=== PATIENT | female | born 2000 | race Caucasian/White ===

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

== ENCOUNTER 2020-01-06 15:06 | Emergency (ER) | payer BC ==
[~2020-01-06] VITALS: Ht 157.5 cm; Wt 62.9 kg
[~2020-01-06 15:06] MED LIST: LEVO50TA5 PO; PROP20TA72 PO; SYNT50TA PO; TRAZ-252 PO
[2020-01-06] MEDS ORDERED: PROPANOLOL 60 MG (15:13)
[2020-01-06] MEDS ORDERED: METH10TA PO (15:13)
[2020-01-06 15:47] LABS: BASO % 0.2 % (0.0-1.0); EOS # 0.1 10^3/uL (0.0-0.5); EOS % 2.7 % (0.0-3.0); HEMATOCRIT 37.9 % (36.0-47.0); HEMOGLOBIN 12.5 g/dl (12.0-15.5); LYMPH # 1.8 10^3/uL (1.5-5.0); LYMPH % 34.2 % (24.0-44.0); MEAN CORPUSCULAR HEMOGLOBIN 26.8 pg (27.0-33.0); MEAN CORPUSCULAR VOLUME 81.3 fl (80.0-96.0); MONO # 0.6 10^3/uL (0.0-0.8); MONO % 11.4 % (0.0-5.0); NEUTROPHILS # 2.7 10^3/uL (1.5-8.5); NEUTROPHILS % 51.3 % (36.0-66.0); PLATELET COUNT, AUTOMATED 354 10^3/uL (150-450); RED BLOOD COUNT 4.66 10^6/uL (4.00-5.40); WHITE BLOOD COUNT 5.2 10^3/uL (4.0-10.0)
[2020-01-06 15:53] LABS: APPEARANCE, URINE CLOUDY (CLEAR); BACTERIA, URINE AUTO 3+ (NEGATIVE); BILIRUBIN, URINE AUTO NEGATIVE (NEGATIVE); BLOOD, URINE BLOOD NEGATIVE (NEGATIVE); COLOR, URINE AMBER (YELLOW); GLUCOSE, URINE (UA) AUTO NEGATIVE (NEGATIVE); KETONE, URINE AUTO NEGATIVE (NEGATIVE); LEUKOCYTE ESTERASE, URINE AUTO TRACE (NEGATIVE); MUCUS, URINE LARGE (NEGATIVE); NITRITE, URINE AUTO NEGATIVE (NEGATIVE); PROTEIN, URINE AUTO 1+ mg/dL (NEGATIVE); RBC, URINE AUTO 7 /HPF (0-3); RENAL EPITHELIAL CELLS 1 /HPF; SQUAMOUS EPITHELIAL CELL UR AU 116 /HPF (0-6); WBC, URINE AUTO 8 /HPF (0-3)
--- NOTE | 2020-01-06 17:47 | REPVR ---
PROCEDURE INFORMATION: Exam: US First Trimester, Transabdominal and US , Transvaginal US Duplex Artery or Vein of the Abdominal and/or Reproductive Organs, Limited Ovaries Exam date and time: 01/06/2020 5:33 PM Age: 19 years old Clinical indication: Lmp or gestational age (in weeks): 4w5d; Antepartum complications; Bleeding; ; Additional info: Spotting/ TECHNIQUE: Imaging protocol: Real-time transabdominal obstetrical ultrasound of the maternal pelvis and a first trimester , less than 14 weeks 0 days, with image documentation. Transvaginal imaging was used for better evaluation of the fetus and adnexa. Real-time duplex ultrasound scan of the arterial or venous flow with barragan scale, color Doppler flow and spectral waveform analysis with image documentation. Limited duplex exam focused on the ovaries. Duplex images required to evaluate for torsion and other vascular conditions. COMPARISON: No relevant prior studies available. FINDINGS: The uterus measures 7.2 x 3.7 x 5.1 cm transabdominally. It is homogeneous in echotexture, without demonstrated lesion. The endometrium measures 11 mm in thickness transabdominally. Within the endometrium is a sac-like structure with mean diameter of 2.1 mm, which would correspond to an estimated gestational age of 4 weeks 5 days, were it to represent a gestational sac. No yolk sac, pole or heart tones were identified. The right ovary measures 2.5 x 2.1 x 2.0 cm transvaginally and contains a 1.8 x 1.6 x 2.0 cm complex lesion. There is internal arterial flow to the ovary, including flow peripheral to the lesion. Peak systolic velocity 23.1 cm/s, end-diastolic velocity 10.6 cm/s, resistive index 0.54. The left ovary measures 1.2 x 1.9 x 1.2 cm transvaginally and appears unremarkable. There is internal arterial flow to the ovary. Peak systolic velocity 7.6 cm/s, end-diastolic velocity 3.1 cm/s, resistive index 0.60. No significant free fluid is demonstrated in the pelvis. IMPRESSION: 1. Intrauterine gestational sac-like structure, which would correspond to an estimated gestational age of 4 weeks 5 days were it to represent a gestational sac, without yolk sac, pole or heart tones. Differential diagnosis includes normal early , failed and ectopic with a pseudo-sac. Suggest correlation with serial beta-hCGs and follow-up ultrasound when clinically appropriate. 2. 2.0 cm complex right ovarian lesion, possibly a corpus luteum, not clearly an ectopic. No significant free fluid. 3. Unremarkable left ovary. 4. Internal arterial flow to both ovaries. Electronically signed by: Vaibhav Leon On 01/06/2020 17:47:38 PM
[2020-01-06 18:01] VITALS: BP 129/84
== END 2020-01-06 18:06 | disposition home or self-care (01) ==
LOC: M ED 15:06
DX: O20.8 Other hemorrhage in early pregnancy (principal); Z87.59 Personal history of other complications of pregnancy, childbirth and the puerperium; O99.281 Endocrine, nutritional and metabolic diseases complicating pregnancy, first trimester; O99.341 Other mental disorders complicating pregnancy, first trimester; O34.81 Maternal care for other abnormalities of pelvic organs, first trimester; Z91.5 Personal history of self-harm; Z3A.01 Less than 8 weeks gestation of pregnancy

== ENCOUNTER → 2020-01-08 | Outpatient (CLI) | payer BC ==
[~2020-01-08] MED LIST changes: +METH10TA PO; +PROPANOLOL 60 MG
== END ==
LOC: M LAB 12:43
PROVIDERS: ATTEND Physician Assistant
DX: O46.92 Antepartum hemorrhage, unspecified, second trimester (principal); Z3A.00 Weeks of gestation of pregnancy not specified

== ENCOUNTER → 2020-01-29 | Outpatient (REF) | payer OTHER ==
[2020-01-29 14:32] LABS: HEMATOCRIT 39.8 % (36.0-47.0); HEMOGLOBIN 13.4 g/dl (12.0-15.5); MEAN CORPUSCULAR HEMOGLOBIN 27.5 pg (27.0-33.0); MEAN CORPUSCULAR HGB CONC 33.7 g/dl (32.0-36.5); MEAN CORPUSCULAR VOLUME 81.6 fl (80.0-96.0); PLATELET COUNT, AUTOMATED 381 10^3/uL (150-450); RED BLOOD COUNT 4.88 10^6/uL (4.00-5.40); WHITE BLOOD COUNT 8.8 10^3/uL (4.0-10.0)
[2020-01-29 14:53] LABS: FREE T4 4.08 NG/DL (0.78-1.33); THYROID STIMULATING HORMONE < 0.005 uIU/ML (0.463-3.98)
[2020-01-29 14:59] LABS: RUBELLA IgG QUALITATIVE IMMUNE (IMMUNE)
[2020-01-29 15:28] LABS: HIV 1&2 SCREEN CENTAUR NEGATIVE (NEGATIVE)
[2020-01-31 09:03] LABS: HEPATITIS B SURFACE ANTIGEN NEGATIVE (NEGATIVE)
[2020-01-31 09:32] LABS: HEPATITIS C VIRUS ABY INDEX 0.1 INDEX (<0.8)
== END ==
LOC: M PLALAB 09:22
PROVIDERS: ATTEND Advanced Practice Midwife
DX: O99.281 Endocrine, nutritional and metabolic diseases complicating pregnancy, first trimester (principal)

== ENCOUNTER 2020-02-13 00:35 | Emergency (ER) | payer BC, OTHER ==
[~2020-02-13] VITALS: Ht 157.5 cm; Wt 59.5 kg
[2020-02-13] MEDS ORDERED: PROP50TA3 PO (00:45)
[2020-02-13] MEDS ORDERED: LABE200T32 PO (00:45)
[2020-02-13] MEDS ORDERED: METOCLOPRAMIDE INJ 10MG/2ML VIAL (J2765 PER 1) IV ONE (01:30)
[2020-02-13] MEDS ORDERED: NS 1,000 ML IV ONE (01:30)
[2020-02-13 01:33] LABS: BASO % 0.1 % (0.0-1.0); EOS % 0.4 % (0.0-3.0); HEMATOCRIT 38.8 % (36.0-47.0); LYMPH % 20.4 % (24.0-44.0); MEAN CORPUSCULAR HEMOGLOBIN 27.3 pg (27.0-33.0); MEAN CORPUSCULAR HGB CONC 33.5 g/dl (32.0-36.5); MEAN CORPUSCULAR VOLUME 81.3 fl (80.0-96.0); MONO # 0.5 10^3/uL (0.0-0.8); NEUTROPHILS # 7.4 10^3/uL (1.5-8.5); NEUTROPHILS % 73.9 % (36.0-66.0); PLATELET COUNT, AUTOMATED 339 10^3/uL (150-450); RED BLOOD COUNT 4.77 10^6/uL (4.00-5.40)
[2020-02-13 01:53] LABS: HCG, SERUM QUALITATIVE POSITIVE (NEGATIVE)
[2020-02-13 01:57] LABS: ALBUMIN 3.8 GM/DL (3.2-5.2); ALT/SGPT 21 U/L (12-78); BILIRUBIN,DIRECT 0.3 MG/DL (0.0-0.2); BILIRUBIN,TOTAL 0.9 MG/DL (0.2-1.0); BLOOD UREA NITROGEN 8 MG/DL (7-18); CALCIUM LEVEL 9.1 MG/DL (8.5-10.1); CARBON DIOXIDE LEVEL 21 MEQ/L (21-32); CHLORIDE LEVEL 106 MEQ/L (98-107); GLUCOSE, FASTING 94 MG/DL (70-100); LIPASE 54 U/L (73-393); POTASSIUM SERUM 3.8 MEQ/L (3.5-5.1); SODIUM LEVEL 138 MEQ/L (136-145); TOTAL PROTEIN 7.8 GM/DL (6.4-8.2)
[2020-02-13] MEDS ORDERED: REGL10TA6 PO (02:13)
[2020-02-13 03:46] VITALS: BP 136/76
== END 2020-02-13 03:48 | disposition home or self-care (01) ==
LOC: M ED 00:35
DX: O21.9 Vomiting of pregnancy, unspecified (principal); O99.281 Endocrine, nutritional and metabolic diseases complicating pregnancy, first trimester; E05.00 Thyrotoxicosis with diffuse goiter without thyrotoxic crisis or storm; Z3A.08 8 weeks gestation of pregnancy; Z79.899 Other long term (current) drug therapy
CPT/HCPCS: 80047; 80048; 80076; 81001; 83690; 84703; 85025; 96361; 96374; 99284; J2765

== ENCOUNTER → 2020-02-26 | Outpatient (REF) | payer BC ==
[~2020-02-26] MED LIST changes: +LABE200T32 PO; +PROP50TA3 PO; +REGL10TA6 PO
[2020-02-26 19:57] LABS: CHLAMYDIA DNA AMPLIFICATION NEGATIVE (NEGATIVE); GC DNA AMPLIFICATION NEGATIVE (NEGATIVE)
== END ==
LOC: M SFHCWAGY 17:24
PROVIDERS: ATTEND Advanced Practice Midwife
DX: Z34.01 Encounter for supervision of normal first pregnancy, first trimester (principal)

== ENCOUNTER → 2020-03-25 | Outpatient (REF) | payer BC ==
[2020-03-25 19:57] LABS: ALBUMIN 3.3 GM/DL (3.2-5.2); ALT/SGPT 12 U/L (12-78); BILIRUBIN,TOTAL 0.7 MG/DL (0.2-1.0); BLOOD UREA NITROGEN 4 MG/DL (7-18); CARBON DIOXIDE LEVEL 24 MEQ/L (21-32); CHLORIDE LEVEL 106 MEQ/L (98-107); GLUCOSE, FASTING 93 MG/DL (70-100); POTASSIUM SERUM 3.7 MEQ/L (3.5-5.1); SODIUM LEVEL 136 MEQ/L (136-145); T UPTAKE 31 % (30-39); THYROID STIMULATING HORMONE < 0.005 uIU/ML (0.463-3.98); TOTAL PROTEIN 6.9 GM/DL (6.4-8.2)
[2020-03-25 19:59] LABS: THYROXINE (T4) > 24.0 UG/DL (6.0-11.6)
== END ==
LOC: M PLALAB 15:16
PROVIDERS: ATTEND Advanced Practice Midwife
DX: E05.00 Thyrotoxicosis with diffuse goiter without thyrotoxic crisis or storm (principal)

== ENCOUNTER → 2020-04-23 | Outpatient (CLI) | payer BC ==
--- NOTE | 2020-04-23 11:29 | REP ---
Obstetric sonography: History: Supervision of for anatomy. Findings: Scanning through the gravid uterus demonstrates a single living intrauterine gestation in a cephalic lie. motion is observed and heart rate is recorded at 161 beats per minute. A posterior grade 1 placenta is seen without evidence of previa or abruption. Amniotic fluid is subjectively normal. Closed cervical length is measured transabdominally at 3.3 cm. No extrauterine abnormality is observed. No abnormality is seen. Scan quality is inhibited by position and the following anatomic structures are less than optimally seen. cavum, cerebellum and posterior fossa, four-chamber heart and left and right ventricular outflow tract views. The following additional anatomic structures are identified and felt to be unremarkable today: cranium, choroid plexus, face and profile, diaphragm, left-sided stomach, abdominal wall cord insertion, three-vessel cord, kidneys and bladder, spine, upper and lower extremities. Biometry chart: BPD 4.6 cm 20 weeks 0 days Head circumference 17.2 cm 19 weeks 5 days Abdominal circumference 13.8 cm 19 weeks 2 days femur Femur length 3.1 cm 19 weeks 5 days Humeral length 2.9 cm 19 weeks 4 days HC/AC ratio normal 1.24 Cephalic index normal 0.75 Estimated weight 295 grams, 0 pounds 10 ounces, 50th percentile for 19 weeks 3 days Impression: Viable single intrauterine gestation 19 weeks 3 days by today's composite criteria. CHICO by today's criteria September 14, 2020. anatomic survey is felt to be incomplete regarding head and heart visualization due to position. Electronically Signed by Foster Pal MD 04/23/2020 11:21 A
== END ==
LOC: M WHC 08:50
PROVIDERS: ATTEND Advanced Practice Midwife
DX: Z34.82 Encounter for supervision of other normal pregnancy, second trimester (principal); Z3A.20 20 weeks gestation of pregnancy

== ENCOUNTER 2020-05-19 19:49 | Outpatient (CLI) | payer BC ==
[~2020-05-19] VITALS: Ht 157.5 cm; Wt 60.0 kg
[2020-05-19] MEDS ORDERED: NITROFURANTOIN (MACROBID) 100 MG CAP ONE (21:25)
[2020-05-19] MEDS ORDERED: NITROFURANTOIN (MACROBID) 100 MG CAP PO ONE (22:00)
== END 2020-05-19 21:35 | disposition home or self-care (01) ==
LOC: M LDO 19:49
PROVIDERS: ATTEND Obstetrics & Gynecology
DX: O23.42 Unspecified infection of urinary tract in pregnancy, second trimester (principal); Z3A.23 23 weeks gestation of pregnancy
CPT/HCPCS: 87086; G0378; G0463

== ENCOUNTER → 2020-06-05 | Outpatient (CLI) | payer BC ==
--- NOTE | 2020-06-30 11:12 | REP ---
CLINICAL: Anatomical assessment. COMPARISON: 04/23/2020 TECHNIQUE: Transabdominal obstetrical ultrasound with color Doppler evaluation. FINDINGS: Ultrasound examination demonstrates single live intrauterine in cephalic presentation. motion was identified by technologist. Placenta is noted posterofundal and grade 1 without evidence for placenta previa or abruption. Amniotic fluid volume is normal. Cervix measures 3.4 cm in length and appears closed. heart rate 150 beats per minute. BPD 62 mm, 25 weeks 3 days. HC 237 mm, 25 weeks 6 days. AC 201 mm, 24 weeks 5 days. FL 46 mm, 25 weeks 1 day. HL 41 mm, 25 weeks, 0 days. Estimated weight 750 grams (18th percentile). Estimated age by current measurements 25 weeks 2 days. Anatomical assessment demonstrates normal cavum, cerebellum, posterior fossa, stomach, kidneys/bladder, four chamber heart/ventricular outflow tract, three vessel cord/cord insertion, facial features, and extremities. IMPRESSION: * Single live intrauterine in cephalic presentation demonstrating appropriate estimated weight and growth. * In conjunction with prior examination, anatomical assessment is complete and normal. No gross abnormalities are identified. MTDD
== END ==
LOC: M WHC 12:24
PROVIDERS: ATTEND Advanced Practice Midwife
DX: Z34.02 Encounter for supervision of normal first pregnancy, second trimester (principal)

== ENCOUNTER → 2020-07-02 | Outpatient (CLI) | payer BC ==
[2020-07-02 14:06] LABS: HEMATOCRIT 35.1 % (36.0-47.0); HEMOGLOBIN 11.2 g/dl (12.0-15.5); MEAN CORPUSCULAR HEMOGLOBIN 27.3 pg (27.0-33.0); MEAN CORPUSCULAR HGB CONC 31.9 g/dl (32.0-36.5); MEAN CORPUSCULAR VOLUME 85.6 fl (80.0-96.0); PLATELET COUNT, AUTOMATED 320 10^3/uL (150-450); WHITE BLOOD COUNT 11.1 10^3/uL (4.0-10.0)
[2020-07-02 15:51] LABS: GLUCOSE CHALLENGE TEST 1 HOUR 84 MG/DL (LESS THAN 140); T UPTAKE 21 % (30-39); THYROID STIMULATING HORMONE < 0.005 uIU/ML (0.463-3.98); THYROXINE (T4) > 24.0 UG/DL (6.0-11.6)
== END ==
LOC: M PLALAB 08:57
PROVIDERS: ATTEND Advanced Practice Midwife
DX: Z34.03 Encounter for supervision of normal first pregnancy, third trimester (principal)

== ENCOUNTER → 2020-08-03 | Outpatient (CLI) | payer BC ==
--- NOTE | 2020-08-03 13:15 | REP ---
INDICATION: GROWTH/HYPERTENSION. COMPARISON: 06/05/2020 and other prior studies. TECHNIQUE: Real-time sonographic evaluation of the gravid uterus performed. FINDINGS: Estimated gestational age is34 weeks 0 days, EDC 09/14/2020. Today's measurements indicate appropriate growth. Presentation: Cephalic Placenta posterior, grade 2, without evidence of placenta previa. heart rate is recorded at 144 beats per minute. Amniotic fluid is subjectively normal. JULIA equals 10.5 (normal 8.1-24.8) Closed cervical length is measured at 3.2 cm. Biometry chart: BPD: 86 mm, 34 weeks 4 days, 59th percentile. HC: 298 mm, 33 weeks 0 days, 34th percentile AC: 306 mm, 34 weeks 4 days, 58th percentile Femur length: 63 mm, 32 weeks 5 days, 31st percentile HC to AC ratio: 0.97, normal range 0.94-1.13. Estimated weight: 2293g, 39th percentile. IMPRESSION: Viable single intrauterine gestation as above. Appropriate growth. <Electronically signed by Kody Lilly > 08/03/20 0461
== END ==
LOC: M WHC 11:28
PROVIDERS: ATTEND Advanced Practice Midwife
DX: O10.919 Unspecified pre-existing hypertension complicating pregnancy, unspecified trimester (principal)

== ENCOUNTER → 2020-08-05 | Outpatient (REF) | payer BC ==
[~2020-08-05] MED LIST changes: +LABE100T36 PO; +PRENTAB9 PO
== END ==
LOC: M PLALAB 12:30
PROVIDERS: ATTEND Obstetrics & Gynecology
DX: O10.913 Unspecified pre-existing hypertension complicating pregnancy, third trimester (principal); Z3A.00 Weeks of gestation of pregnancy not specified

== ENCOUNTER → 2020-08-17 | Outpatient (CLI) | payer BC ==
[~2020-08-17] MED LIST changes: -LABE100T36 PO; -PRENTAB9 PO
--- NOTE | 2020-08-18 04:38 | REP ---
INDICATION: CHRONIC HYPERTENSION,GROWTH COMPARISON: 08/03/2020 TECHNIQUE: Transabdominal obstetrical ultrasound with color Doppler evaluation. FINDINGS: Examination demonstrates a single live intrauterine in cephalic presentation. motion is identified by technologist. Placenta is noted posterior/fundal and grade 2 without evidence for placenta previa or abruption. Amniotic fluid volume is normal. Cervix appears closed.. Gestational age by LMP 36 weeks 0 days with [facility] 09/14/2020. Gestational age by current measurements 33 weeks 6 days with [facility] 09/29/2020. FHR equals 146 beats per minute. BPD: 8.3 cm 33 weeks 3 days HC: 30.6 cm 34 weeks 0 days AC: 30.8 cm 34 weeks 5 days FL: 6.7 cm 34 weeks 3 days HL: 5.7 cm there is 32 weeks 6 days HC/AC: 0.99 Estimated weight 2430 grams (15thpercentile). IMPRESSION: Single live advanced gestation in cephalic presentation. Estimated weight within normal range. <Electronically signed by Xander Christensen > 08/18/20 [id number]
== END ==
LOC: M WHC 15:00
PROVIDERS: ATTEND Advanced Practice Midwife
DX: O10.919 Unspecified pre-existing hypertension complicating pregnancy, unspecified trimester (principal); Z3A.33 33 weeks gestation of pregnancy

== ENCOUNTER → 2020-08-26 | Outpatient (CLI) | payer BC ==
[~2020-08-26] MED LIST changes: +LABE100T36 PO; +PRENTAB9 PO
--- NOTE | 2020-08-26 12:11 | REP ---
INDICATION: CHRONIC HYPERTENSION,BPP COMPARISON: 08/17/2020 TECHNIQUE: Transabdominal obstetrical ultrasound with color Doppler evaluation. FINDINGS: Examination demonstrates a single live intrauterine in cephalic presentation. motion is identified by technologist. Placenta is noted posterior and grade 2 without evidence for placenta previa or abruption. Amniotic fluid volume is normal. Cervix measures 3.6 cm in length and appears closed.. Gestational age by LMP 37 weeks 2 days with [facility] 09/14/2020. FHR equals 142 beats per minute. Biophysical profile score: 8/8 JULIA: 14.4 cm (7.4-24.3) Umbilical artery SD ratio: 2.26 (1.58-3.41) IMPRESSION: Single live advanced gestation in cephalic presentation demonstrating appropriate biophysical profile score and amniotic fluid index. <Electronically signed by Xander Christensen > 08/26/20 [id number]
== END ==
LOC: M WHC 11:32
PROVIDERS: ATTEND Advanced Practice Midwife
DX: O10.913 Unspecified pre-existing hypertension complicating pregnancy, third trimester (principal); Z3A.37 37 weeks gestation of pregnancy

== ENCOUNTER 2020-08-31 11:55 | Inpatient (IN) | payer BC ==
[~2020-08-31] VITALS: Ht 157.5 cm; Wt 67.8 kg
[2020-08-31] VITALS (23 sets, daily range): BP systolic 116–166; BP diastolic 57–105
[~2020-08-31 11:55] MED LIST changes: -LABE100T36 PO; -PRENTAB9 PO
[2020-08-31] MEDS ORDERED: LABE100T36 PO (12:19)
[2020-08-31] MEDS ORDERED: PRENTAB9 PO (12:19)
[2020-08-31] MEDS ORDERED: LACTATED RINGER'S 1000 ML IV STA (12:49)
[2020-08-31] MEDS ORDERED: PENICILLIN G POTASSIUM IV 5 MU in D5W MINI-BAG PLUS 100 ML IV STA (12:49)
[2020-08-31] MEDS: miSOPROStol 50 MCG 1/2 TAB (S0191) PO SCH ×2 (13:24→17:40)
[2020-08-31 13:31] LABS: HEMATOCRIT 33.3 % (36.0-47.0); HEMOGLOBIN 10.4 g/dl (12.0-15.5); MEAN CORPUSCULAR HEMOGLOBIN 24.8 pg (27.0-33.0); MEAN CORPUSCULAR HGB CONC 31.2 g/dl (32.0-36.5); MEAN CORPUSCULAR VOLUME 79.3 fl (80.0-96.0); PLATELET COUNT, AUTOMATED 304 10^3/uL (150-450); WHITE BLOOD COUNT 9.5 10^3/uL (4.0-10.0)
--- NOTE | 2020-08-31 13:46 | HPEPDOC ---
Obstetrical History & Physical General Date of Admission Aug 31, 2020 at 11:55 Primary Care Physician: MUMTAZ AVILA CNM History of Present Illness Marta is a 20 y/o at 38.0 weeks, [facility] 09/14/20 by 1st trimester ultrasound on 01/29/20 at 7.1 weeks. She presents to Labor and Delivery today for IOL for essential hypertension, controlled currently with 50mg Labetalol twice daily. Medical history significant for hyperthyroid/Grave's disease currently not taking medication, last thyroid levels on 07/02/20 as follows: T uptake 21, T4 >24.0, and TSH <0.005. She has been non-compliant with her hyperthyroid treatment, not taking medication appropriately, and no showed to referrals for endocrinology on multiple occasions. She was educated on the potential side effects to herself and to fetus with untreated hyperthyroidism. She is also positive for GBS bacteriuria in . She currently denies contractions, vaginal bleeding, and LOF. Reports active movement. Denies headache, visual disturbances, epigastric pain, nausea. Chief Complaint: Induction of labor (Essential hypertension) Information Provided By: Patient Age: 20 : 2 Term: 0 Pre-term: 0 Abortions: 1 Livin Care Care: Good Care Dating Final EDC: Sep 14, 2020 Final EDC by: 1st trimester (US) 1st Trimester Date: Jan 29, 2020 Weeks + Days: 7.1 EGA at Admission: 38.0 Antepartum Course Diagnos(e)s Essential Hypertension Hyperthyroid/Grave's Disease Height (inches): 62 Admission Weight (lbs.): 149 Past Medical History Past Obstetrical History : Past Obstetrical History: [facility] History: No pertinent history Past Medical History Medical History Essential Hypertension Hyperthyroid/Grave's Disease Surgical History: Denies/None Family History Significant Family History: Diabetes (Sibling) Social History Marital Status: Family situation: Spouse/partner deployed Psychosocial History: No pertinent psych hx * Smoker: non-smoker Alcohol: Denies Drugs: denies Imunizations Influenza Status: declined Allergies Coded Allergies: No Known Allergies (Unverified , 12/18/19) Medications Scheduled Labetalol HCl (Labetalol HCl) 100 Mg Tablet, 50 MG PO BID No.137/Iron/Folic Acd ( Vitamin Tablet) 1 Each Tablet, 1 TAB PO DAILY Physical Examination Physical Examination GENERAL: Alert and oriented times three. ABDOMEN: Gravid and non-tender to touch. FETUS: Is vertex (VTX) by sterile vaginal examination (SVE), fetus is vertex (VTX) by Lloyd. EFW 6.5-7lbs by Yasmin. HEART RATE: Regular rate and rhythm. LUNGS: Clear to auscultation bilaterally, no accessory muscle use. EXTREMITIES: No edema. No clonus. Deep tendon reflexes (DTRs) + 2 bilaterally. Laboratory Data 24H LABS Laboratory Tests 2 08/31/20 12:10: Serology Scanned Report Hepatitis B Testing Urine Culture: Other (GBS positive) Pertinent Laboratoy Data Blood Type: A+ RBC Antibody Screen: Negative HIV: Negative Hepatitis B: Negative Hepatitis C: Negative Rapid Plasma Reagin: Nonreactive Rubella: Immune Chlamydia/Gonorrhea: Negative Group B Streptococcus: Positive (in urine) Glucose Tolerance Test: 84 Steroid Therapy Steroid Therapy: No Vaginal Examination Dilation: 1cm Effacement: 40% Station: -3 Cervical Consistency: Medium Cervical Position: Middle Presentation: Cephalic presentation Position: Vertex (occiput) Assessment Heart Rate (FHR): 140 Variability: Moderate Accelerations: Positive Decelerations: None Tocometer Contractions: No Multi-drug resistant Organism: No history of MDRO Assessment/Plan Assessment IUP at 38 weeks IOL for Essential Hypertension Hyperthyroid/Grave's Disease GBS Positive in urine Category 1 FHT Plan Admit and orient to Labor and Delivery. Activity as tolerated. Diet: Regular. Group B Streptococcus (GBS) positive in urine, plan to treat with Penicillin in active labor. Labs and intravenous (IV) per unit protocol. Counseled on Pitocin, cytotec, Cook's catheter, and induction of labor (IOL). Intermittent EFM per policy while on cytotec. Lactated Ringers (LR): Bolus 500 mL space control agent for epidural, then 125mL/hr. Anticipate normal spontaneous delivery (). Anesthesia consult for epidural. Dr. Vargas aware of patient in department and plan of care collaborated with her. C-S as appropriate. MUMTAZ AVILA CNM Aug 31, 2020 13:41
[2020-08-31 13:49] LABS: ALT/SGPT 9 U/L (12-78); BILIRUBIN,TOTAL 0.6 MG/DL (0.2-1.0); CREATININE FOR GFR 0.73 MG/DL (0.55-1.30); LDH LACTATE DEHYDROGENASE 198 U/L (84-246); URIC ACID 3.1 MG/DL (2.6-6.0)
[2020-08-31] MEDS ORDERED: PENICILLIN G POTASSIUM IV 2.5 MU in IV 1 EA IV SCH (17:00)
[2020-08-31] MEDS: LR 1,000 ML IV SCH ×2 (17:41→23:53)
[2020-08-31] MEDS ORDERED: PILL CUTTER 1 EACH XX PRN (20:30)
[2020-08-31] MEDS: LABETALOL 100 MG TAB PO SCH (22:00)
[2020-08-31] MEDS ORDERED: OXYTOCIN DRIP 30 UNITS in IV 1 EA IV SCH (22:15)
[2020-08-31] MEDS ORDERED: FENTANYL 2MCG/ML ROPIVACAINE 0.2% IN 0.9% NACL 100ML IVBAG As Ordered ONE (22:16)
[2020-08-31] MEDS: FENTANYL/ROPIVACAINE/NACL BAG 100 ML EPIDURAL SCH (23:23)
[2020-09-01] VITALS (44 sets, daily range): BP systolic 102–155; BP diastolic 62–94
[2020-09-01] MEDS ORDERED: PENICILLIN G POTASSIUM IV 5 MU in D5W MINI-BAG PLUS 100 ML IV STA (00:08)
[2020-09-01] MEDS ORDERED: diphenhydrAMINE 50MG/ML VIAL (J1200) IV PRN (00:15)
[2020-09-01] MEDS ORDERED: NALOXONE INJ 0.4MG/1ML VIAL (J2310 PER 1MG) IV PRN (00:15)
[2020-09-01] MEDS ORDERED: EPIDURAL/PCA KEYS XX PRN (00:15)
[2020-09-01] MEDS ORDERED: ONDANSETRON 4MG/2ML VIAL IV PRN ×2 (00:15→13:15)
[2020-09-01] MEDS ORDERED: EPIDURAL COMMENT XX SCH (00:15)
[2020-09-01] MEDS ORDERED: LACTATED RINGER'S 1000 ML IV PRN (00:15)
[2020-09-01] MEDS ORDERED: REFRIGERATOR IV KEYS XX PRN (00:15)
[2020-09-01] MEDS: ePHEDrine SULFATE 25 MG/5 ML(5MG/ML) SYRINGE IV PRN ×2 (03:54→04:04)
[2020-09-01] MEDS: PENICILLIN G POTASSIUM IV 2.5 MU in IV 1 EA IV SCH ×2 (04:37→08:48)
[2020-09-01] MEDS: LR 1,000 ML IV SCH ×2 (05:56→10:06)
--- NOTE | 2020-09-01 08:02 | IPNPDOC ---
Obstetrical Progress Note Date of Service Sep 01, 2020 Subjective comfortable with epidural Objective Vital Signs Date Time Temp Pulse Resp B/P (MAP) Pulse Ox O2 Delivery O2 Flow Rate FiO2 09/01/20 07:04 93 107/64 (78) 09/01/20 06:27 18 09/01/20 06:12 98.0 08/31/20 19:09 98 Room Air Assessment Variability: Moderate Accelerations: Positive Decelerations: None Heart Rate Tracing: Category I Tocometer Contractions: Yes Frequency: regular, every 1-3 min. Strength: palpated as moderate Sterile Vaginal Examination Dilation: 5 cm Effacement (%): 70% Station: -1 Cervical Consistency: Soft Cervical Position: Middle Postion/Presentation: Cephalic presentation Assessment and Plan Age: 20 : 1 Term: 0 Status: Reassuring Additional Comments AROM clear fluid noted A/P 20 yo at 38 weeks, induction for chronic hypertension, day#2 AROM performed as noted On Pitocin 18 mu/min Cook's catheter previously came out doing well LUCINA VIDALES MD Sep 01, 2020 08:02
[2020-09-01] MEDS: LABETALOL 100 MG TAB PO SCH (09:00)
[2020-09-01] MEDS: FENTANYL/ROPIVACAINE/NACL BAG 100 ML EPIDURAL SCH (10:26)
[2020-09-01] MEDS ORDERED: RHOGAM 300 MCG (1500 IU) INJ (J2790) IM SCH (13:15)
[2020-09-01] MEDS ORDERED: IBUPROFEN 600MG TAB PO PRN (13:15)
[2020-09-01] MEDS ORDERED: MEASLES,MUMPS,RUBELLA VACCINE INJ (MMR-II) (90707) SC SCH (13:15)
[2020-09-01] MEDS ORDERED: ACETAMINOPHEN 500 MG TAB PO PRN (13:15)
[2020-09-01] MEDS ORDERED: BENZOCAINE 20% HEMORRHOIDAL OINTMENT 28GM TUBE TOP PRN (13:15)
[2020-09-01] MEDS ORDERED: DOCUSATE SODIUM 100MG CAPSULE PO PRN (13:15)
[2020-09-01] MEDS ORDERED: OXYTOCIN DRIP 30 UNITS in IV 1 EA IV ONE (13:15)
[2020-09-01] MEDS ORDERED: METHYLERGONOVINE MALEATE 0.2 MG TAB PO PRN (13:15)
--- NOTE | 2020-09-01 13:24 | DNPDOC ---
[facility] Delivery Note Delivery Note DATE OF DELIVERY: September 01, 2020 PREDELIVERY DIAGNOSIS: 38-0/7 weeks' gestation, chronic hypertension, induction POST DELIVERY DIAGNOSIS: Delivered. PROCEDURE: Spontaneous vaginal delivery. ENTERPRISE ARCHITECT MANAGER: Dr. Lucina Vidales MD ANESTHESIA: epidural. ESTIMATED BLOOD LOSS: 300 mL. FINDINGS: 5 pound 14 ounce female , Score 8/9, left leg flexed at delivery. DELIVERY SUMMARY: Patient is a 20-year-old 1 now para 1 who was admitted to labor and delivery for induction due to chronic hypertension. She received Misoprostol, followed by an intracervical catheter and Pitocin. After a 10 minute second stage of labor she had a spontaneous delivery of a 5 lb. 14 oz. female infant, 8, 9. Left foot noted coming out with the head. No Nuchal cord. Shoulders delivered with ease. handed to mother and cried quickly. Cord doubly clamped and cut. The placenta delivered spontaneously and appeared intact. The pt received IV Pitocin immediately after delivery of the placenta. No vaginal lacerations present. Sponge counts correct. LUCINA VIDALES MD Sep 01, 2020 13:24
[2020-09-01] MEDS ORDERED: SLF 3 ML SYR IV PRN (15:30)
[2020-09-01] MEDS: ACETAMINOPHEN TAB 650MG DOSE (2X325MG) PO PRN (17:55)
[2020-09-01] MEDS: SLF 3 ML SYR IV SCH (22:00)
[2020-09-01] MEDS: IBUPROFEN 800 MG TAB PO PRN (23:20)
[2020-09-02] MEDS: ACETAMINOPHEN TAB 650MG DOSE (2X325MG) PO PRN ×2 (03:48→04:18)
[2020-09-02 06:00] VITALS: BP 133/76
[2020-09-02] MEDS: SLF 3 ML SYR IV SCH (06:00)
--- NOTE | 2020-09-02 07:46 | IPNPDOC ---
Progress Note Date of Service: Sep 02, 2020 Day#: 1 Progress Note SUBJECT: Pt is a 20-year-old 1 now Para 0 status post uncomplicated spo ntaneous vaginal delivery doing well day # 1. She has been ambulating, voiding spontaneously without issue and tolerating regular diet. Breast feeding without issue. Reports lochia is like a normal period. Patient is ambulating well. Denies any pain. Voiding without difficulty. OBJECTIVE: VITAL SIGNS: Within normal limits, afebrile. Alert and oriented times three. Breath sounds clear to auscultation. Heart rate: Regular rate and rhythm, no murmurs, rubs or gallops. Abdomen: Fundus firm at U-2. Soft, NTTP. [Minimal] lochia. ASSESSMENT: Pt is a 20-year-old 1 now Para 1 status post uncomplicated spontaneous vaginal delivery after presenting for induction due to chronic hypertension , doing well on day 1. Vitals within normal limits, afebrile, hemodynamically stable with no evidence of infection. PLAN: 1. Discharge to home tomorrow 2. Tylenol and Motrin for pain. 3. Encourage breast feeding and ambulation. 4. can restart labetalol 50 mg BID VS, I&O, 24H, Fishbone Vital Signs/I&O Vital Signs Date Time Temp Pulse Resp B/P (MAP) Pulse Ox O2 Delivery O2 Flow Rate FiO2 09/02/20 06:00 97.7 77 18 133/76 (95) 09/01/20 18:00 96 Room Air I&O- Last 24 Hours up to 6 AM 09/02/20 06:00 Intake Total 1019.1 ml Output Total 2450 ml Balance -1430.9 ml LUCINA VIDALES MD Sep 02, 2020 07:46
[2020-09-02 08:00] VITALS: BP 133/76
[2020-09-02] MEDS: PRENATAL VITAMINS CHEWABLE TABLET PO SCH (08:25)
[2020-09-02] MEDS: LABETALOL 100 MG TAB PO SCH ×2 (08:29→21:19)
[2020-09-02] MEDS ORDERED: BOOSTRIX/ADACEL VACCINE (DIPHTH/PERTUSS/ACELL/TETANUS) 0.5ML SYR IM ONE (09:00)
[2020-09-02] MEDS ORDERED: INFLUENZA QUADRIVALENT PF VACCINE 0.5ML SYRINGE IM ONE (09:00)
[2020-09-02] MEDS: IBUPROFEN 800 MG TAB PO PRN (14:34)
[2020-09-02 18:00] VITALS: BP 144/74
[2020-09-02 21:20] VITALS: BP 130/83
[2020-09-03] MEDS: IBUPROFEN 800 MG TAB PO PRN (00:34)
[2020-09-03 05:18] VITALS: BP 124/66
[2020-09-03] MEDS: PRENATAL VITAMINS CHEWABLE TABLET PO SCH (08:52)
[2020-09-03 08:53] VITALS: BP 132/82
[2020-09-03] MEDS: LABETALOL 100 MG TAB PO SCH (08:53)
== END 2020-09-03 12:48 | disposition home or self-care (01) | DRG 560 ==
LOC: M LDI 11:55 → M OBS 09-01 15:45
PROVIDERS: ADMIT Advanced Practice Midwife; ATTEND Specialist
PROC: 3E0P7GC Introduction of Other Therapeutic Substance into Female Reproductive, Via Natural or Artificial Opening (ICD-10-PCS; 2020-08-31)
PROC: 10E0XZZ Delivery of Products of Conception, External Approach (ICD-10-PCS; principal; 2020-09-01)
PROC: 10907ZC Drainage of Amniotic Fluid, Therapeutic from Products of Conception, Via Natural or Artificial Opening (ICD-10-PCS; 2020-09-01)
DX: O10.02 Pre-existing essential hypertension complicating childbirth (principal); Z3A.38 38 weeks gestation of pregnancy; O99.284 Endocrine, nutritional and metabolic diseases complicating childbirth; E05.00 Thyrotoxicosis with diffuse goiter without thyrotoxic crisis or storm; O99.820 Streptococcus B carrier state complicating pregnancy; Z37.0 Single live birth

== ENCOUNTER → 2021-02-03 | Outpatient (CLI) | payer OTHER ==
[~2021-02-03] MED LIST changes: +LABE100T5 PO; +PRENTAB9 PO
[2021-02-03 13:59] LABS: THYROID STIMULATING HORMONE < 0.005 uIU/ML (0.463-3.98)
[2021-02-03 14:04] LABS: TOTAL T3 219.2 NG/DL (86.0-192.0)
== END ==
LOC: M PLALAB 11:27
PROVIDERS: ATTEND Nurse Practitioner Family
DX: E05.00 Thyrotoxicosis with diffuse goiter without thyrotoxic crisis or storm (principal)

== ENCOUNTER → 2021-03-08 | Outpatient (CLI) | payer OTHER ==
[2021-03-08 15:19] LABS: FREE T4 2.01 NG/DL (0.78-1.33); THYROID STIMULATING HORMONE < 0.005 uIU/ML (0.463-3.98)
== END ==
LOC: M PLALAB 11:08
PROVIDERS: ATTEND Nurse Practitioner Family
DX: E05.00 Thyrotoxicosis with diffuse goiter without thyrotoxic crisis or storm (principal)

== ENCOUNTER → 2021-06-15 | Outpatient (CLI) | payer OTHER ==
[2021-06-15 16:08] LABS: FREE T4 1.62 NG/DL (0.76-1.46); THYROID STIMULATING HORMONE 3.59 uIU/ML (0.358-3.740)
== END ==
LOC: M PLALAB 14:13
PROVIDERS: ATTEND Nurse Practitioner Family
DX: E89.0 Postprocedural hypothyroidism (principal)

== ENCOUNTER → 2021-08-29 | Outpatient (REF) ==
[2021-08-29 16:38] LABS: RSV AMPLIFICATION NEGATIVE (NEGATIVE)
== END ==
LOC: M EMP 15:29
PROVIDERS: ATTEND Family Medicine
DX: Z20.822 Contact with and (suspected) exposure to COVID-19 (principal)

== ENCOUNTER → 2021-09-07 | Outpatient (CLI) | payer OTHER | LOC: M PLALAB 11:17 | PROVIDERS: ATTEND Nurse Practitioner Family | DX: E89.0 Postprocedural hypothyroidism (principal) ==

== ENCOUNTER → 2021-11-09 | Outpatient (CLI) | payer OTHER | LOC: M PLALAB 15:24 | PROVIDERS: ATTEND Nurse Practitioner Family | DX: E89.0 Postprocedural hypothyroidism (principal) ==

== ENCOUNTER → 2021-12-13 | Outpatient (CLI) | payer OTHER ==
[~2021-12-13] MED LIST changes: +LABE200T3 PO; -LABE200T32 PO
== END ==
LOC: M PLALAB 14:33
PROVIDERS: ATTEND Obstetrics & Gynecology
DX: E03.9 Hypothyroidism, unspecified (principal)

== ENCOUNTER → 2021-12-31 | Outpatient (CLI) | payer OTHER | LOC: M PLALAB 11:15 | PROVIDERS: ATTEND Internal Medicine Endocrinology, Diabetes & Metabolism | DX: O99.281 Endocrine, nutritional and metabolic diseases complicating pregnancy, first trimester (principal) ==

== ENCOUNTER → 2022-01-26 | Outpatient (CLI) | payer OTHER | LOC: M PLALAB 15:26 | PROVIDERS: ATTEND Nurse Practitioner Family | DX: E89.0 Postprocedural hypothyroidism (principal) ==